=== PATIENT | male | born 1985 | race Caucasian/White ===

== ENCOUNTER 2018-10-27 12:57 | Inpatient (IN) | payer OTHER, MEDICAID ==
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
[2018-10-27] MEDS ORDERED: OLANZapine 5 MG TAB PO ONE (13:39)
[2018-10-27 13:51] LABS: PLATELET COUNT 347 10^3/uL (150-400)
[2018-10-27] MEDS ORDERED: LORazepam 1 MG TAB PO ONE (17:25)
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
--- NOTE | 2018-10-27 17:39 | ASMTTCLDSP ---
TLC Discharge Disposition Disposition: Answers: Admit Discharge Concerns/Recommendations: Notes: In consultation with [facility] ED physician, Dr Cuellar and on-call psychiatrist, Dr Estes, both concurred that Pt does appear to meet 27-65 criteria requiring psychiatric hospitalization as Pt does appear to be an imminent risk of harm to due to grave disability due to a mental illness condition. Was patient given the Answers: Yes Inpatient Behavioral Health Prohibited Belongings List while in the ED? For inpatient Dr estes admission, the following psychiatrist agreed to accept patient for admission to Behavioral Health ([facility]): Type of Hold: Answers: M1/72-hour Hold Hold initiated by: Answers: Police Date Signed: 10/27/2018 05:39 PM Electronically Signed By:Kellee Diaz
--- NOTE | 2018-10-27 19:08 | ASMTLCPROG ---
Notes Note: Notes: Auth completed Date Signed: 10/27/2018 07:08 PM Electronically Signed By:Stefan Harrison
[2018-10-27] MEDS ORDERED: LORazepam 0.5 MG TAB PO PRN (20:48)
[2018-10-27] MEDS ORDERED: OLANZapine DISINTEGR 10 MG TAB PO PRN (20:48)
[2018-10-27] MEDS ORDERED: ACETAMINOPHEN 325 MG TAB PO PRN (20:48)
[2018-10-27] MEDS ORDERED: MAGNESIUM HYDROXIDE 30 ML UDCUP PO PRN (20:48)
[2018-10-27] MEDS ORDERED: MAG HYDROX/AL HYDROX/SIMETH 30 ML UDCUP PO PRN (20:48)
[2018-10-27] MEDS ORDERED: NICOTINE POLACRILEX 2 MG GUM B PRN (20:48)
[2018-10-27] MEDS ORDERED: MELATONIN 3 MG TAB PO PRN (20:51)
--- NOTE | 2018-10-28 02:34 | PDGENHP ---
History and Physical - Chief Complaint N/A - History of Present Illness The patient is a 33yo M who was admitted for a psychiatric hold. He had gotten into an argument with his at home. He also mentions that his sister found out he has not been on psychiatric medication, which he decided to stop about 6 months ago, and "freaked out." The patient feels frustrated because he does not think there is a reason for him to be on a psychiatric hold. He denies SI or HI. He denies feeling angry or depressed. According to the ED notes, the patient followed his to her father's house in [place] and was reported to be entering a manic episode, so PD was called to take him to the hospital. The patient admits that he has been hospitalized in Psychiatric units multiple times in the past. He denies any physical or mental complaints at this time. History Information - Allergies/Home Medication List Allergies/Adverse Reactions: No Known Allergies Allergy (Unverified 10/27/18 13:07) Home Medications: NK [No Known Home Meds] 10/27/18 [Last Taken Unknown] I have personally reviewed and updated: family history, medical history, social history, surgical history - Past Medical History no pertinent PMH - Surgical History Reports: no pertinent surgical hx - Social History Smoking Status: Never smoked Alcohol Use: None Drug Use: Marijuana Review of Systems Review of Systems: ROS: 10pt was reviewed & negative except for what was stated in HPI & below Physical Exam Physical Exam: Temp Pulse Resp BP Pulse Ox 36.9 C 101 H 15 126/98 H 94 10/27/18 18:48 10/27/18 18:48 10/27/18 18:48 10/27/18 18:48 10/27/18 18:48 Constitutional: no apparent distress Eyes: EOMI, other (no conjunctivitis) Ears, Nose, Mouth, Throat: moist mucous membranes, hearing normal Cardiovascular: regular rate and rhythym, no murmur, rub, or gallop Respiratory: no respiratory distress, no rales or rhonchi, clear to auscultation Gastrointestinal: normoactive bowel sounds, soft, non-tender abdomen Skin: warm, normal color Musculoskeletal: full muscle strength, no muscle tenderness Neurologic: AAOx3, CN II-XII Intact Psychiatric: anxious, agitated Lab Data & Imaging Review 10/27/18 13:30 10/27/18 13:30 WBC 13.92 10^3/uL (3.80-9.50) H 10/27/18 13:30 RBC 5.25 10^6/uL (4.40-6.38) 10/27/18 13:30 Hgb 15.5 g/dL (13.7-17.5) 10/27/18 13:30 Hct 44.6 % (40.0-51.0) 10/27/18 13:30 MCV 85.0 fL (81.5-99.8) 10/27/18 13:30 MCH 29.5 pg (27.9-34.1) 10/27/18 13:30 MCHC 34.8 g/dL (32.4-36.7) 10/27/18 13:30 RDW 12.5 % (11.5-15.2) 10/27/18 13:30 Plt Count 347 10^3/uL (150-400) 10/27/18 13:30 MPV 9.7 fL (8.7-11.7) 10/27/18 13:30 Neut % (Auto) 85.2 % (39.3-74.2) H 10/27/18 13:30 Lymph % (Auto) 9.4 % (15.0-45.0) L 10/27/18 13:30 [place] % (Auto) 4.3 % (4.5-13.0) L 10/27/18 13:30 Eos % (Auto) 0.2 % (0.6-7.6) L 10/27/18 13:30 Baso % (Auto) 0.4 % (0.3-1.7) 10/27/18 13:30 Nucleat RBC Rel Count 0.0 % (0.0-0.2) 10/27/18 13:30 Absolute Neuts (auto) 11.86 10^3/uL (1.70-6.50) H 10/27/18 13:30 Absolute Lymphs (auto) 1.31 10^3/uL (1.00-3.00) 10/27/18 13:30 Absolute Monos (auto) 0.60 10^3/uL (0.30-0.80) 10/27/18 13:30 Absolute Eos (auto) 0.03 10^3/uL (0.03-0.40) 10/27/18 13:30 Absolute Basos (auto) 0.05 10^3/uL (0.02-0.10) 10/27/18 13:30 Absolute Nucleated RBC 0.00 10^3/uL (0-0.01) 10/27/18 13:30 Immature Gran % 0.5 % (0.0-1.1) 10/27/18 13:30 Immature Gran # 0.07 10^3/uL (0.00-0.10) 10/27/18 13:30 Sodium 140 mEq/L (135-145) 10/27/18 13:30 Potassium 3.7 mEq/L (3.5-5.2) 10/27/18 13:30 Chloride 106 mEq/L (97-110) 10/27/18 13:30 Carbon Dioxide 23 mEq/l (22-31) 10/27/18 13:30 Anion Gap 11 mEq/L (6-14) 10/27/18 13:30 BUN 14 mg/dL (7-23) 10/27/18 13:30 Creatinine 0.9 mg/dL (0.7-1.3) 10/27/18 13:30 Estimated GFR > 60 10/27/18 13:30 Glucose 125 mg/dL (70-100) H 10/27/18 13:30 Calcium 9.9 mg/dL (8.5-10.4) 10/27/18 13:30 Urine Opiates Screen NEGATIVE (NEGATIVE) 10/27/18 13:30 Urine Barbiturates NEGATIVE (NEGATIVE) 10/27/18 13:30 Ur Phencyclidine Scrn NEGATIVE (NEGATIVE) 10/27/18 13:30 Ur Amphetamine Screen NEGATIVE (NEGATIVE) 10/27/18 13:30 U Benzodiazepines Scrn NEGATIVE (NEGATIVE) 10/27/18 13:30 Urine Cocaine Screen NEGATIVE (NEGATIVE) 10/27/18 13:30 U Marijuana (THC) Screen NON-NEGATIVE (NEGATIVE) H 10/27/18 13:30 Ethyl Alcohol < 10 mg/dL (0-10) 10/27/18 13:30 Assessment & Plan Assessment: Bipolar 1 disorder (Acute) Haydee (Acute) Leukocytosis, reactive Marijuana use HTN on admission, resolved Plan: -Medically clear for psychiatric inpatient admission.
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
--- NOTE | 2018-10-28 17:40 | PDMN ---
Medical Necessity Medical necessity: Pt meets INPT criteria per and [id number] ( Schizoaffective disorder, bipolar type by hx; M1 hold).
[2018-10-28] MEDS: OLANZapine DISINTEGR 10 MG TAB PO SCH (22:18)
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
--- NOTE | 2018-10-29 12:38 | ASMTBHFAM ---
Notes Note: Notes: CC met with client, WOC and provider briefly for family meeting. Client agree to go to out-patient treatment after hospitalization and discontinue smoking Marijuana. noted, she would like sister not be involved in client's treatment plan meeting. Goal is to discharge tomorrow, client to follow up with [facility] and re-start medications. Date Signed: 10/29/2018 12:37 PM Electronically Signed By:Ramón Mejia
[2018-10-29] MEDS: OLANZapine DISINTEGR 10 MG TAB PO SCH (21:03)
[2018-10-30 06:46] VITALS: BP 108/64
--- NOTE | 2018-10-30 09:35 | BDS ---
REASON FOR ADMISSION: From the ED note dated 10/27/2018, the patient presented to the emergency room with the [place] [employer] on an M1 hold. The patient has a history of bipolar disorder and was noncompliant with his medications. The patient apparently got into an argument with his . He then started to escalate and show signs of increasing aggression and manic behavior. His left. The patient followed his to [place] to her father's home. The police were called. They intervened at the patient's 's father's home. The patient was compliant with police. He was placed on an M1 hold by police. The patient was not suicidal. The patient was recently admitted to [facility] in [place] approximately 1 week prior to his presenting at the emergency room. The patient denied having any issues with barbara or bipolar disorder. He reported he was just having marital problems. The patient also reported he was not on any psychiatric medications. The patient reported being prescribed Zyprexa during his inpatient hospitalization in [place] at [facility]. The patient was admitted involuntarily on an M1 hold due to being gravely disabled due to mental illness. Patient was admitted for safety, crisis stabilization, and medication management. ADMITTING DIAGNOSES: 1. Bipolar disorder with mood congruent psychotic features. 2. Cannabis use disorder, severe dependence. 3. Cannabis-induced mood disorder. ADMISSION PHYSICAL EXAM: The patient was seen on 10/28/2018 for history and physical for medical clearance for inpatient psychiatric hospitalization and treatment. The patient was medically cleared for inpatient psychiatric hospitalization and treatment for further details, please refer to history and physical note dated 10/28/2018. ADMISSION LABS: 1. CBC from 10/27/2018, within normal limits except white blood cells were elevated at 13.9, neutrophils were elevated at 85.2, lymphocytes were low at 9.4 , monocytes were low at 4.3, eosinophils were low at 0.2, absolute neutrophils were elevated at 11.86. 2. BMP within normal limits except glucose was elevated at 125. 3. Hemoglobin A1c from 10/29/2018, within normal limits at 5.2. 4. Liver function test from 10/29/2018, within normal limits. 5. Lipid panel from 10/29/2018, within normal limits except cholesterol is elevated at 217, LDL cholesterol calculated was elevated at 130, non-HDL cholesterol was elevated at 145 and HDL cholesterol was elevated at 72. 6. Toxicology screen from 10/27/2018 negative for THC, negative for all other substances screen and negative for ethyl alcohol. MAJOR PROCEDURES OR TESTS: None. HOSPITAL COURSE: The most prominent symptoms and behaviors while the patient was here were the patient's reports of severe anxiety. The patient did present on irritable and agitated treatment modalities utilized were milieu and group therapy. Zyprexa Zydis 10 mg p.o. at bedtime was started to target mood symptoms, was tolerated with no report of side effects and with good response. The patient has improved considerably with no signs of psychiatric symptoms and no psychiatric symptoms expressed at time of discharge. The patient reports he has improved since admission. States to be in stable condition, feels safe to discharge and he contracts for safety. Patient's response to treatment was good. There were no adverse or unexpected results of treatment. The patient was safe throughout his stay, active in treatment, attended and engaged in groups, and was appropriate with staff and other patients. The patient met with the treatment team prior to discharge to assess readiness to discharge and review discharge plan the treatment team consensus is the patient is in stable condition, has a safe discharge plan, and is ready to discharge today. CONDITION AT DISCHARGE: Patient is in stable condition and is no longer a danger to self or others, and is not gravely disabled due to mental illness. Patient is no longer in need of inpatient level of care, and can be safely and effectively treated within the community. The patients level of risk at time of discharge is low. MSE: The patient is casually dressed and with good hygiene , and looks stated age. Patient is sitting, posture is upright, and position is relaxed. Patient appears awake, alert, and responds appropriately and reasonably during interview. Patient is engaged, relates well to interviewer, and emotional facial expression is appropriate to situation and changes appropriately with topic. Patient is cooperative, makes comfortable eye contact , and movements are voluntary, deliberate, coordinated, and smooth and even with no inappropriate movements. Patient makes laryngeal sounds effortlessly and shares conversation appropriately; pace of conversation is appropriate, and stream of talking is fluent; articulation is clear and understandable; word choice is effortless and appropriate for education level; completes sentences, occasionally pausing to think; rate and volume are appropriate for interview and setting. Patient reports mood as euthymic. Patients affect is stable with full variable range, congruent with mood, and appropriate to speech and circumstances. Patient has linear and logical thinking, with no loose associations, tangential thought, thought blocking, concrete thinking, or any other signs of formal thought disorder. Patient denies suicidal and homicidal ideation, and denies hallucinations and delusions. Patient appears to be a reliable historian with sound judgement and good insight into current condition. Patient has no apparent dysfunction in recent or remote memory noted , and no evidence of gross cognitive dysfunction noted at any point during the interview. DISCHARGE DIAGNOSES: 1. Bipolar disorder with mood congruent psychotic features. 2. Cannabis use disorder, severe dependence. 3. Cannabis-induced mood disorder. CURRENT MEDICATIONS: After reviewing options, risks, and benefits with the patient. The patient agrees to continue Zyprexa 10 mg p.o. at bedtime. The patient request a prescription for this medication at time of discharge. Prescription for 30 days is provided. The prescription is reviewed with the patient at time of discharge to ensure accuracy and patient understanding. DISPOSITION: The patient left hospital independently and voluntarily with his and plans to return home with his . FOLLOWUP: corporate fitness program coordinator reports the appropriate outpatient follow-up services have been established and outpatient appointments have been scheduled. The patient received written instructions with times and dates of outpatient follow-up appointments. The following follow-up recommendations were provided to the patient at discharge: Continue psychotropic medications as prescribed and attend appointments as scheduled. Report any side effects to a psychiatric outpatient provider, a primary care provider, or other health md do resident urgent care. Address any questions or problems concerning the psychotropic medications with a psychiatric outpatient provider, a primary care provider, or other health md do resident urgent care. Contact [facility] or [facility], or go to the nearest emergency room, if you are ever a danger to yourself/others, or unable to care for yourself. As soon as possible, establish a routine medication management treatment with a psychiatric provider, establish routine therapy appointments, and follow-up with a primary care provider. SUBSTANCE ABUSE BRIEF INTERVENTION: Brief intervention regarding the risks of cannabis abuse is provided to patient with goal to reduce the risk of harm that could result from the continued use of cannabis, with the general aim to investigate the problem, raise awareness of problem, develop a solution with the patient, recommend a specific change or activity, and motivate the patient toward change. Assess substance abuse behavior and give supportive advice about harm reduction, recommend a reduction in hazardous/at-risk consumption patterns, and facilitate referrals for additional specialized treatment with home care provider. Intermediate goal is for the patient to quit and attend outpatient substance abuse treatment. Intervention focus on intermediate goals to allow for more immediate success in the treatment process to keep the patient motivated. Review following with patient: Cannabis use risks: Short- term use: impaired short-term memory, impaired motor coordination, altered judgement, in high doses paranoia and psychosis. Long-term use addiction, diminished life satisfaction and achievement, symptoms of chronic bronchitis, and increased risk of chronic psychosis disorders if predisposition to such disorders. In withdrawal anger, aggression irritability, anxiety and nervousness, decreased appetite or weight loss, restlessness, and sleep difficulties with strange dreams. OUTPATIENT SUBSTANCE ABUSE TREATMENT: Patient referred to outpatient provider and treatment for continued treatment related to substance abuse. LEGAL COURSE: The patient was admitted on an M1 hold for involuntary psychiatric hospitalization. The patient discharged today independently and voluntarily. ATTITUDE AT TIME OF DISCHARGE: The patients attitude was positive at time of discharge, and patient reports looking forward to discharging today. The patient reports he feels safe to discharge, is no longer a danger to himself or others, is in stable condition, and contracts for safety. Patient states he will continue medications as prescribed, and establish medication management treatment with an outpatient provider after discharge. Patient reports he understands the information that has been provided to him, and he understands, accepts, and agrees to psychotropic medications. Patient describes internal protective factors as the coping skills he has learned while hospitalized here, and he plans to continue to practice these coping skills after discharge. FAMILY MEETING: This DRESSING ROOM PORTER met with patient and patient's at patient's request to assess readiness to discharge and review discharge plan. Patient's reported patient is safe to discharge and has a safe discharge plan. LABS AND STUDIES: There were no pending labs or studies at time. ADVANCE DIRECTIVES: There were no advance directives on file, and patient was full code during this hospitalization. The following psychotropic medication treatment informed consent and recommendations were provided to the patient at time of discharge. Patient reports he understands, accepts, and agrees to the information that has been provided. PSYCHOTROPIC MEDICATION TREATMENT INFORMED CONSENT and RECOMMENDATIONS: Review nature of condition, diagnosis, and prognosis. Review nature and purpose of psychotropic medication treatment. Review type of psychotropic medications being prescribed. Review risk and benefits of psychotropic medication treatment. Review probable length of time will need to take medications. Review risk and benefits of not undergoing psychotropic medication treatment. Review alternative treatments to psychotropic medications. Review psychotropic medications contraindications, side effects, and importance of reporting any side effects to a psychiatric provider, primary care provider, or other health md do resident urgent care. Review importance of asking a psychiatric provider or primary care provider any questions or problems concerning the psychotropic medications. Review safety plan and the importance to contact [facility] or [facility] , or go to the nearest emergency room, if ever a danger to yourself/others, or unable to care for yourself. Recommend upon discharge to establish routine medication management treatment with a psychiatric provider, establish routine therapy appointments, and follow-up with a primary care provider. Verify patient understands, accepts, and agrees to the information that has been provided. /[id number]/MODL MTDD
--- NOTE | 2018-10-30 09:44 | ASMTCMCOM ---
CM Note CM Note Notes: CC checked in with ct. ahead of his discharge. Ct. reported that he is doing OK. His is picking him up and they are going to his parents house to have a family dinner. They will be returning to [facility] later tonight. Ct. reported that he has a follow up with Sean Fuentes on 11/05/18. He reported that he plan on getting a lot of services including couple's therapy. Date Signed: 10/30/2018 09:44 AM Electronically Signed By:Daphne Avila
== END 2018-10-30 11:00 | disposition home or self-care (01) | DRG 885 ==
LOC: EEVIPCON 12:57 → BBEH 18:40
PROVIDERS: ADMIT Psychiatry & Neurology Psychiatry; ATTEND Psychiatry & Neurology Psychiatry
DX: F31.2 Bipolar disorder, current episode manic severe with psychotic features (principal); F12.20 Cannabis dependence, uncomplicated; Z91.128 Patient's intentional underdosing of medication regimen for other reason
CPT/HCPCS: 80305; G0480